=== PATIENT | female | born 1935 | race African-American/Black ===

== ENCOUNTER → 2017-08-09 | Outpatient (CLI) | payer MEDICARE, BC | END | disposition home or self-care (01) | LOC: MAMMO 12:58 | PROVIDERS: ATTEND Internal Medicine Rheumatology | DX: Z12.31 Encounter for screening mammogram for malignant neoplasm of breast (principal); I10 Essential (primary) hypertension; R06.01 Orthopnea | CPT/HCPCS: 71046; 77067 ==

== ENCOUNTER → 2019-07-26 | Day surgery (SDC) | payer MEDICARE, BC ==
[~2019-07-26] MED LIST: LIDOCAINE HCL/EPINEPHRINE 1%-EPI 1:100,000 20 ML VIAL ONE; SODIUM BICARBONATE 4% (2.4MEQ) 5ML VIAL IV ONE
== END | disposition home or self-care (01) ==
LOC: RAD 09:26
PROVIDERS: ATTEND Obstetrics & Gynecology
DX: N63.22 Unspecified lump in the left breast, upper inner quadrant (principal); C50.912 Malignant neoplasm of unspecified site of left female breast
CPT/HCPCS: 19083; 88305; A4648; J3490

== ENCOUNTER → 2019-08-21 | Day surgery (SDC) | payer MEDICARE, BC ==
[~2019-08-21] MED LIST changes: +APIX2.5T PO; +CARV12.545 PO; +CELE-84 PO; +FOLI-43 PO; +INSU100I11 SQ; +INSU100I28 SQ; +LEVO100T9 PO; +LIDOCAINE HCL 1% 20ML VIAL (Pyxis) INJ ONE; +METF-416 PO; +METH2.5T PO; +PRED2.5T4 PO; +SIMV10TA97 PO
== END | disposition home or self-care (01) ==
LOC: RAD 08:55
PROVIDERS: ATTEND Surgery
DX: N63.22 Unspecified lump in the left breast, upper inner quadrant (principal); Z85.3 Personal history of malignant neoplasm of breast; Z88.2 Allergy status to sulfonamides; Z88.8 Allergy status to other drugs, medicaments and biological substances; Z79.899 Other long term (current) drug therapy
CPT/HCPCS: 19083; J3490

== ENCOUNTER 2019-08-27 05:53 | Day surgery (SDC) | payer MEDICARE, BC ==
[~2019-08-27] VITALS: Ht 161.3 cm; Wt 59.0 kg
[2019-08-27] MEDS ORDERED: ETHYL CHLORIDE CAN TOP ONE (06:45)
[2019-08-27 07:00] LABS: BASOPHILS % 0.6 % (0.0-2.0); EOSINOPHILS % 2.4 % (0.0-5.0); HEMATOCRIT. 35.5 % (36.0-48.0); HEMOGLOBIN. 11.9 g/dL (12.0-16.0); LYMPHOCYTES % 13.9 % (20.0-50.0); MEAN CORPUSCULAR HEMOGLOBIN 32.7 pg (28.0-32.0); MEAN CORPUSCULAR VOLUME 97.1 fL (81.0-99.0); MEAN PLATELET VOLUME 8.6 fl (7.4-10.4); MONOCYTES % 7.3 % (2.0-8.0); NEUTROPHILS % 75.8 % (40.0-76.0); PLATELET 194 x1000/uL (130-400); RED BLOOD CELL COUNT 3.65 mill/uL (4.2-5.4); RED CELL DISTRIBUTION WIDTH 15.5 % (11.6-14.6)
[2019-08-27 07:01] LABS: CHLORIDE 107 mEq/L (98-107)
[2019-08-27 07:04] LABS: INR 0.9; PARTIAL THROMBOPLASTIN TIME 23.6 sec (23.4-31.0); PROTHROMBIN TIME 10.3 sec (9.6-11.0)
[2019-08-27] MEDS ORDERED: METHYLENE BLUE 50 MG/10 ML AMP IV ONE (07:13)
[2019-08-27] MEDS ORDERED: BUPIVACAINE HCL 0.5% (5MG/ML) 50ML ONE (07:14)
[2019-08-27] MEDS ORDERED: SKIN ADHESIVE 0.7 GM EA TOP ONE (07:14)
[2019-08-27] MEDS ORDERED: INSU100I11 SQ (07:17)
[2019-08-27] MEDS ORDERED: PRED2.5T4 PO (07:17)
[2019-08-27] MEDS ORDERED: METH2.5T PO (07:17)
[2019-08-27] MEDS ORDERED: INSU100I28 SQ (07:17)
[2019-08-27] MEDS ORDERED: CARV12.545 PO (07:17)
[2019-08-27] MEDS ORDERED: METF-416 PO (07:17)
[2019-08-27] MEDS ORDERED: FOLI-43 PO (07:17)
[2019-08-27] MEDS ORDERED: SIMV10TA97 PO (07:17)
[2019-08-27] MEDS ORDERED: APIX2.5T PO (07:17)
[2019-08-27] MEDS ORDERED: LEVO100T9 PO (07:17)
[2019-08-27] MEDS ORDERED: CELE-84 PO (07:17)
[2019-08-27] MEDS ORDERED: SODIUM CHLORIDE 0.9% 10ML VIAL ONE (07:22)
[2019-08-27] MEDS ORDERED: FENTANYL CITRATE/PF 50MCG/ML 2ML VIAL ONE (07:27)
[2019-08-27] MEDS ORDERED: MIDAZOLAM HCL 2 MG/2 ML VIAL ONE (07:27)
[2019-08-27] MEDS ORDERED: ROCURONIUM BROMIDE 10MG/ML VIAL 5ML IV ONE (07:28)
[2019-08-27] MEDS ORDERED: PROPOFOL 200MG/20ML VIAL IV ONE (07:28)
[2019-08-27] MEDS ORDERED: PHENYLEPHRINE HCL 10 MG/ML 1ML (IV VIAL) IV ONE (07:32)
[2019-08-27] MEDS ORDERED: EPHEDRINE SULFATE 50MG/ML VIAL ONE (07:32)
[2019-08-27] MEDS ORDERED: LACTATED RINGERS 1,000 ML IV SCH (08:00)
[2019-08-27] MEDS ORDERED: LEVOFLOXACIN 500MG PREMIX 100 ML IV ONE (08:12)
[2019-08-27] MEDS ORDERED: ESMOLOL HCL 10MG/ML 10ML VIAL IV ONE (08:13)
[2019-08-27] MEDS ORDERED: HYDROCORTISONE SOD SUCCINATE 100 MG/2 ML VIAL ONE (08:13)
[2019-08-27] MEDS ORDERED: ONDANSETRON HCL 4MG/2ML INJ ONE (08:49)
[2019-08-27] MEDS ORDERED: HYDROMORPHONE HCL/PF 2MG/ML CPJ IV PRN (10:30)
[2019-08-27 10:36] VITALS: BP 145/81
[2019-08-27] MEDS ORDERED: ONDANSETRON HCL 4MG/2ML INJ IV ONE (12:00)
[2019-08-27] MEDS ORDERED: METOCLOPRAMIDE HCL 10MG/2ML VIAL IV ONE (12:00)
[2019-08-27] MEDS ORDERED: INSULIN REGULAR (HUMULIN R) 300UNITS/3ML SUBCUT ONE (12:00)
== END 2019-08-27 13:43 | disposition home or self-care (01) ==
LOC: OR 05:53
PROVIDERS: ATTEND Surgery
DX: D05.02 Lobular carcinoma in situ of left breast (principal); D05.12 Intraductal carcinoma in situ of left breast; C96.9 Malignant neoplasm of lymphoid, hematopoietic and related tissue, unspecified; E11.9 Type 2 diabetes mellitus without complications; I10 Essential (primary) hypertension; I49.9 Cardiac arrhythmia, unspecified; M06.9 Rheumatoid arthritis, unspecified; E03.9 Hypothyroidism, unspecified; H40.9 Unspecified glaucoma; E78.2 Mixed hyperlipidemia; I48.0 Paroxysmal atrial fibrillation; Z72.89 Other problems related to lifestyle; Z87.891 Personal history of nicotine dependence; Z80.3 Family history of malignant neoplasm of breast; Z88.8 Allergy status to other drugs, medicaments and biological substances; Z98.890 Other specified postprocedural states; Z83.3 Family history of diabetes mellitus
CPT/HCPCS: 19301; 19499; 36415; 38525; 78195; 80048; 82962; 85025; 85610; 85730; 88307; 88309; 88331; A4648; J1170; J1720; J1815; J1956; J2250; J2370; J2405; J2704; J2765; J3010; J3490; Q9968

== ENCOUNTER → 2020-01-27 | Outpatient (CLI) | payer MEDICARE, BC ==
[~2020-01-27] MED LIST changes: +BRIM5DRO6 LEFTEYE; +DORZ10DR8 EACHEYE; +DORZ10DR8 LEFTEYE; +GENTAMICIN SULF 40MG/ML 2ML VIAL ONE; +LATA2.5D2 LEFTEYE; -LIDOCAINE HCL 1% 20ML VIAL (Pyxis) INJ ONE; -LIDOCAINE HCL/EPINEPHRINE 1%-EPI 1:100,000 20 ML VIAL ONE; +LIDOCAINE HCL/PF 1% 10 MG/ML 5ML VIAL ONE; +METOPROLOL TARTRATE 5MG/5ML VIAL IV ONE; +ONDANSETRON HCL 4MG/2ML INJ ONE; +PROPOFOL 200MG/20ML VIAL IV ONE; -SODIUM BICARBONATE 4% (2.4MEQ) 5ML VIAL IV ONE; +TIMO5DRO27 LEFTEYE
== END | disposition home or self-care (01) ==
LOC: LAB 12:25
PROVIDERS: ATTEND Urology
DX: Z01.818 Encounter for other preprocedural examination (principal); Z11.59 Encounter for screening for other viral diseases
CPT/HCPCS: C9803; U0003

== ENCOUNTER 2020-01-29 06:42 | Day surgery (SDC) | payer MEDICARE, BC ==
[~2020-01-29] VITALS: Ht 161.3 cm; Wt 59.9 kg
[~2020-01-29 06:42] MED LIST changes: -BRIM5DRO6 LEFTEYE; -DORZ10DR8 EACHEYE; -DORZ10DR8 LEFTEYE; -GENTAMICIN SULF 40MG/ML 2ML VIAL ONE; -LATA2.5D2 LEFTEYE; -LIDOCAINE HCL/PF 1% 10 MG/ML 5ML VIAL ONE; -METOPROLOL TARTRATE 5MG/5ML VIAL IV ONE; -ONDANSETRON HCL 4MG/2ML INJ ONE; -PROPOFOL 200MG/20ML VIAL IV ONE; -TIMO5DRO27 LEFTEYE
[2020-01-29] MEDS ORDERED: SODIUM CHLORIDE 0.9% 1,000 ML IV SCH (08:30)
[2020-01-29 08:52] LABS: PARTIAL THROMBOPLASTIN TIME 22.7 sec (23.4-31.0); PROTHROMBIN TIME 10.3 sec (9.6-11.0)
[2020-01-29] MEDS ORDERED: BRIM5DRO6 LEFTEYE (09:42)
[2020-01-29] MEDS ORDERED: DORZ10DR8 EACHEYE (09:42)
[2020-01-29] MEDS ORDERED: LATA2.5D2 LEFTEYE (09:42)
[2020-01-29] MEDS ORDERED: TIMO5DRO27 LEFTEYE (09:51)
[2020-01-29] MEDS ORDERED: DORZ10DR8 LEFTEYE (09:51)
[2020-01-29] MEDS ORDERED: PHENAZOPYRIDINE HCL 100MG TABLET PO PRN (10:00)
== END 2020-01-29 12:05 | disposition home or self-care (01) ==
LOC: OR 06:42
PROVIDERS: ATTEND Urology
DX: N32.9 Bladder disorder, unspecified (principal); R31.0 Gross hematuria; C67.9 Malignant neoplasm of bladder, unspecified; I10 Essential (primary) hypertension; E03.9 Hypothyroidism, unspecified; E11.9 Type 2 diabetes mellitus without complications; E78.2 Mixed hyperlipidemia; I48.0 Paroxysmal atrial fibrillation; M06.9 Rheumatoid arthritis, unspecified; Z79.84 Long term (current) use of oral hypoglycemic drugs; Z79.899 Other long term (current) drug therapy; Z98.890 Other specified postprocedural states; Z88.1 Allergy status to other antibiotic agents; Z88.2 Allergy status to sulfonamides; Z88.8 Allergy status to other drugs, medicaments and biological substances; Z87.440 Personal history of urinary (tract) infections
CPT/HCPCS: 36415; 52204; 71045; 82962; 85610; 85730; 88305; 93005; J0690; J1580; J2405; J2704; J3490

== ENCOUNTER → 2020-02-04 | Outpatient (CLI) | payer MEDICARE, BC ==
[~2020-02-04] MED LIST changes: +BRIM5DRO6 LEFTEYE; +DORZ10DR8 LEFTEYE; +LATA2.5D2 LEFTEYE; +TIMO5DRO27 LEFTEYE
== END | disposition home or self-care (01) ==
LOC: RAD 14:24
PROVIDERS: ATTEND Obstetrics & Gynecology
DX: M19.012 Primary osteoarthritis, left shoulder (principal); M19.011 Primary osteoarthritis, right shoulder; I70.8 Atherosclerosis of other arteries; Z11.1 Encounter for screening for respiratory tuberculosis
CPT/HCPCS: 71045

== ENCOUNTER → 2020-05-26 | Outpatient (CLI) | payer MEDICARE, BC ==
[~2020-05-26] MED LIST changes: +VITAMIN B12 PO
== END | disposition home or self-care (01) ==
LOC: LAB 12:20
PROVIDERS: ATTEND Urology
DX: Z01.812 Encounter for preprocedural laboratory examination (principal); Z20.828 Contact with and (suspected) exposure to other viral communicable diseases
CPT/HCPCS: 87426

== ENCOUNTER → 2020-05-27 | Day surgery (SDC) | payer MEDICARE, BC ==
[~2020-05-27] VITALS: Ht 161.3 cm; Wt 56.7 kg
[~2020-05-27] MED LIST changes: +FENTANYL CITRATE/PF 50MCG/ML 2ML VIAL ONE; +GENTAMICIN SULF 40MG/ML 2ML VIAL ONE; +GLYCOPYRROLATE 0.2 MG/ML 2ML VIAL ONE; +HYDROCODONE/ACETAMINOPHEN 5/325MG TABLET PO SCH; +LACTATED RINGERS 1,000 ML IV SCH; +MEPERIDINE HCL/PF 25MG/ML CPJ IV PRN; +METOCLOPRAMIDE HCL 10MG/2ML VIAL ONE; +MIDAZOLAM HCL 2 MG/2 ML VIAL ONE; +MORPHINE SULFATE 2 MG/ML CPJ (NOT FOR IM USE) IV PRN; +ONDANSETRON HCL 4MG/2ML INJ IV PRN; +ONDANSETRON HCL 4MG/2ML INJ ONE; +PROPOFOL 200MG/20ML VIAL IV ONE; +SODIUM CHLORIDE 0.9% 1,000 ML IV ONE; +SUCCINYLCHOLINE CHLORIDE 200MG/10ML IV ONE
[2020-05-27] MEDS: HYDROMORPHONE HCL/PF 2MG/ML CPJ IV PRN ×2 (08:46→08:54)
[2020-05-27 08:54] VITALS: BP 131/59
== END | disposition home or self-care (01) ==
LOC: OR 05:40
PROVIDERS: ATTEND Urology
DX: C67.2 Malignant neoplasm of lateral wall of bladder (principal); R31.0 Gross hematuria; I10 Essential (primary) hypertension; E11.9 Type 2 diabetes mellitus without complications; E03.9 Hypothyroidism, unspecified; E78.00 Pure hypercholesterolemia, unspecified; M06.9 Rheumatoid arthritis, unspecified; Z79.82 Long term (current) use of aspirin; Z79.84 Long term (current) use of oral hypoglycemic drugs; Z79.899 Other long term (current) drug therapy; Z98.890 Other specified postprocedural states; Z88.1 Allergy status to other antibiotic agents; Z88.2 Allergy status to sulfonamides; Z88.8 Allergy status to other drugs, medicaments and biological substances
CPT/HCPCS: 52204; 82962; 88305; J0330; J1170; J1580; J2250; J2405; J2704; J3010; J2765; J3490

== ENCOUNTER → 2020-08-17 | Outpatient (CLI) | payer MEDICARE, BC ==
[~2020-08-17] MED LIST changes: -FENTANYL CITRATE/PF 50MCG/ML 2ML VIAL ONE; -GENTAMICIN SULF 40MG/ML 2ML VIAL ONE; -GLYCOPYRROLATE 0.2 MG/ML 2ML VIAL ONE; -HYDROCODONE/ACETAMINOPHEN 5/325MG TABLET PO SCH; -LACTATED RINGERS 1,000 ML IV SCH; +LATA2.5D14 LEFTEYE; -LATA2.5D2 LEFTEYE; -MEPERIDINE HCL/PF 25MG/ML CPJ IV PRN; -METOCLOPRAMIDE HCL 10MG/2ML VIAL ONE; -MIDAZOLAM HCL 2 MG/2 ML VIAL ONE; -MORPHINE SULFATE 2 MG/ML CPJ (NOT FOR IM USE) IV PRN; -ONDANSETRON HCL 4MG/2ML INJ IV PRN; -ONDANSETRON HCL 4MG/2ML INJ ONE; -PROPOFOL 200MG/20ML VIAL IV ONE; -SODIUM CHLORIDE 0.9% 1,000 ML IV ONE; -SUCCINYLCHOLINE CHLORIDE 200MG/10ML IV ONE
== END | disposition home or self-care (01) ==
LOC: LAB 15:30
PROVIDERS: ATTEND Urology
DX: Z01.812 Encounter for preprocedural laboratory examination (principal); Z20.822 Contact with and (suspected) exposure to COVID-19
CPT/HCPCS: 87426

== ENCOUNTER → 2020-08-19 | Day surgery (SDC) | payer MEDICARE, BC ==
[~2020-08-19] VITALS: Ht 160 cm; Wt 56.7 kg
[~2020-08-19] MED LIST changes: +FENTANYL CITRATE/PF 50MCG/ML 2ML VIAL ONE; +GLYCOPYRROLATE 0.2 MG/ML 2ML VIAL ONE; +LEVOFLOXACIN 500MG PREMIX 100 ML IV ONE; +METOCLOPRAMIDE HCL 10MG/2ML VIAL ONE; +MIDAZOLAM HCL 2 MG/2 ML VIAL ONE; +ONDANSETRON HCL 4MG/2ML INJ ONE; +PROPOFOL 200MG/20ML VIAL IV ONE; +SODIUM CHLORIDE 0.9% 1,000 ML IV SCH; +SUCCINYLCHOLINE CHLORIDE 200MG/10ML IV ONE
[2020-08-19 08:48] LABS: BASOPHILS % 0.6 % (0.0-2.0); EOSINOPHILS % 2.7 % (0.0-5.0); HEMATOCRIT. 35.2 % (36.0-48.0); HEMOGLOBIN. 11.5 g/dL (12.0-16.0); LYMPHOCYTES % 14.1 % (20.0-50.0); MEAN CORPUSCULAR HEMOGLOBIN 32.7 pg (28.0-32.0); MEAN CORPUSCULAR VOLUME 100.1 fL (81.0-99.0); MEAN PLATELET VOLUME 8.8 fl (7.4-10.4); MONOCYTES % 11.3 % (2.0-8.0); NEUTROPHILS % 71.3 % (40.0-76.0); PLATELET 180 x1000/uL (130-400); RED BLOOD CELL COUNT 3.52 mill/uL (4.2-5.4); RED CELL DISTRIBUTION WIDTH 15.2 % (11.6-14.6)
[2020-08-19 08:54] LABS: CHLORIDE 107 mEq/L (98-107)
[2020-08-19 08:54] LABS: CLARITY URINE CLEAR (CLEAR); COLOR URINE YELLOW (YELLOW); KETONES URINE 1+ (NEGATIVE); LEUKOCYTE ESTERASE URINE 2+ (NEGATIVE); NITRITE URINE POSITIVE (NEGATIVE); OCCULT BLOOD URINE 1+ (NEGATIVE); PH URINE 5.5 (4.5-8.0); PROTEIN URINE TRACE (NEGATIVE); SPECIFIC GRAVITY URINE 1.022 (1.005-1.030)
== END | disposition home or self-care (01) ==
LOC: OR 07:12
PROVIDERS: ATTEND Urology
DX: C67.2 Malignant neoplasm of lateral wall of bladder (principal); I10 Essential (primary) hypertension; E11.9 Type 2 diabetes mellitus without complications; E03.9 Hypothyroidism, unspecified; E78.00 Pure hypercholesterolemia, unspecified; M06.9 Rheumatoid arthritis, unspecified; Z79.82 Long term (current) use of aspirin; Z79.84 Long term (current) use of oral hypoglycemic drugs; Z79.899 Other long term (current) drug therapy; Z98.890 Other specified postprocedural states
CPT/HCPCS: 36415; 52235; 71045; 80048; 81003; 82962; 85025; 87086; 88305; 93005; J0330; J1956; J2250; J2405; J2704; J2765; J3010; J3490